=== PATIENT | male | born 1970 | race Caucasian/White ===

== ENCOUNTER → 2019-09-19 14:22 | Outpatient (CLI) | payer OTHER | END | disposition home or self-care (01) | LOC: CERTIFICAD 14:22 | PROVIDERS: ATTEND General Practice | DX: Z11.1 Encounter for screening for respiratory tuberculosis (principal) ==

== ENCOUNTER 2019-09-26 15:13 | Emergency (ER) | payer OTHER ==
[~2019-09-26] VITALS: Ht 180.3 cm; Wt 72.6 kg
== END 2019-09-26 21:31 | disposition home or self-care (01) ==
LOC: ER 15:13
DX: B34.8 Other viral infections of unspecified site (principal); R50.9 Fever, unspecified

== ENCOUNTER 2020-07-09 08:43 | Emergency (ER) | payer OTHER ==
[~2020-07-09] VITALS: Ht 152.4 cm; Wt 81.6 kg
== END 2020-07-09 11:31 | disposition home or self-care (01) ==
LOC: ER 08:43
DX: B34.9 Viral infection, unspecified (principal); Z11.52 Encounter for screening for COVID-19

== ENCOUNTER → 2020-09-11 | Outpatient (CLI) | payer OTHER | END | disposition home or self-care (01) | LOC: LAB 11:29 | PROVIDERS: ATTEND Emergency Medicine Pediatric Emergency Medicine | DX: Z03.818 Encounter for observation for suspected exposure to other biological agents ruled out (principal) ==

== ENCOUNTER 2020-11-11 08:55 | Outpatient (CLI) | payer OTHER | END 2020-11-11 09:55 | disposition home or self-care (01) | LOC: PPH VACUNA 08:55 | PROVIDERS: ATTEND Emergency Medicine Pediatric Emergency Medicine | DX: Z23 Encounter for immunization (principal) ==